=== PATIENT | male | born 1990 | race Caucasian/White ===

== ENCOUNTER 2024-04-16 23:23 | Emergency (ER) | payer OTHER, SELFPAY ==
[2024-04-16 23:29] VITALS: BP 147/96; PULSE 114; RESP 18; TEMP 36.5; O2SAT 97; BMI 28.1
[2024-04-16] MEDS: ONDANSETRON 4 MG/2 ML INJ IV (23:40)
--- NOTE | 2024-04-16 23:54 | ED_ITS ---
HPI - Nausea/Vomiting/Diarrhea General Chief complaint: Nausea/Vomiting/Diarrhea Stated complaint: Vomiting, blood in stool, abd pain Time Seen by Provider: 04/16/24 23:29 Source: patient and family Mode of arrival: Ambulatory History of Present Illness HPI Narrative: Patient is a 34-year-old male who is here for evaluation of several hours of vomiting, diarrhea, abdominal pain. He was visiting the area. No other sick contacts. No recent antibiotics. No fevers. Describes generalized abdominal pain that started around the time of the diarrhea and the vomiting. There was also some concern about dark-colored stools and even dark-colored vomit. He was not on anticoagulation. Related Data Allergies Allergy/AdvReac Type Severity Reaction Status Date / Time No Known Drug Allergies Allergy Verified 04/16/24 23:38 Review of Systems Review of Systems ROS Unobtainable: All systems reviewed & are unremarkable except as noted in HPI and below Patient History Social History Smoking Status: Never smoker Smoking Status: Never smoker Exam Initial Vital Signs Initial Vital Signs: Vital Signs Temperature 97.7 F 04/16/24 23:29 Pulse Rate 114 H 04/16/24 23:29 Respiratory Rate 18 04/16/24 23:29 Blood Pressure 147/96 H 04/16/24 23:29 Pulse Oximetry 97 04/16/24 23:29 Oxygen Delivery Method Room Air 04/16/24 23:29 Const General: cooperative HENMT Head: normal to inspection Resp Effort & Inspection: normal respiratory effort Auscultation: clear to auscultation bilaterally Cardio Rate: tachycardic Rhythm: regular rhythm GI Inspection: non-distended Palpation: soft, No firm, No guarding and tender Neuro General: patient alert and patient awake Course Orders Ordered: ED Orders 04/16/24 23:45 Complete Blood Count AUTO DIFF Stat Comprehensive Metabolic Panel Stat Lipase Stat 04/16/24 23:55 XR abdomen 1V Stat Discontinued Medications Sodium Chloride (Normal Saline 0.9%) 1,000 mls @ 1,000 mls/hr IV BOLUS ONE Stop: 04/17/24 00:53 Last Infusion: 04/17/24 01:04 Dose: Infused Documented By: Admin: 04/16/24 23:57 Dose: 1,000 mls/hr Documented By: MARCELA Metoclopramide HCl (Metoclopramide 10 Mg/2 Ml Inj) 10 mg IV NOW ONE Stop: 04/16/24 23:55 Last Admin: 04/16/24 23:57 Dose: 10 mg Documented By: MARCELA Ondansetron HCl (Ondansetron 4 Mg/2 Ml Inj) 4 mg IV NOW ONE Stop: 04/16/24 23:30 Last Admin: 04/16/24 23:40 Dose: 4 mg Documented By: MARCELA Ondansetron HCl (Ondansetron 4 Mg Odt Prepack) 1 bottle MISC DIRECTED ONE Stop: 04/17/24 01:25 Vital Signs Vital signs: Vital Signs - 8 hr 04/16/24 23:29 Temperature 97.7 F Pulse Rate 114 H Respiratory Rate 18 Blood Pressure 147/96 H Pulse Oximetry 97 Oxygen Delivery Method Room Air MDM - Nausea/Vomiting/Diarrhea Lab Data Attestation: I reviewed the patient's lab results. 04/16/24 23:45 04/16/24 23:45 Labs: Lab Results 04/16/24 Range/Units 23:45 WBC 17.0 H (4.5-11.0) X10^3/uL RBC 5.53 (4.5-5.9) X10^6/uL Hgb 16.8 (13.5-17.5) g/dL Hct 49.7 (41-53) % MCV 89.8 (80-100) fL MCH 30.3 (26-34) PG MCHC 33.7 (30-36) % RDW 13.2 (11.6-14.8) % Plt Count 361 (150-400) X10^3/uL Neut % (Auto) 91.9 H (50-75) % Lymph % (Auto) 4.1 L (25-40) % [place] % (Auto) 3.5 (3-14) % Eos % (Auto) 0.3 L (2-4) % Baso % (Auto) 0.2 (0-2) % Neut # (Auto) 84820 H (4173-1684) /uL Lymph # (Auto) 700 L (9292-3803) /uL [place] # (Auto) 600 (0-900) /uL Eos # (Auto) 100 (0-450) /uL Baso # (Auto) 0 (0-100) /uL Sodium 137 (137-145) mmol/L Potassium 4.3 (3.4-5.1) mmol/L Chloride 101 (98-107) mmol/L Carbon Dioxide 27 (22-32) mmol/L BUN 18 (9-20) mg/dL Creatinine 1.29 H (0.66-1.25) mg/dL Estimated GFR > 60 (>60) mL/min BUN/Creatinine Ratio 14.0 (6-22) Glucose 127 H (70-100) mg/dL Calcium 9.8 (8.4-10.2) mg/dL Total Bilirubin 0.7 (0.2-1.3) mg/dL AST 35 (17-59) IU/L ALT 37 (<50) IU/L Alkaline Phosphatase 85 (38-126) U/L Total Protein 8.7 H (6.3-8.2) g/dL Albumin 5.0 (3.5-5.0) g/dL Globulin 3.7 (1.7-4.1) g/dL Albumin/Globulin Ratio 1.4 (1.0-2.8) Lipase 46 (23-300) U/L Imaging Data Abdominal x-ray: Radiologist's Impression: PROCEDURE: XR ABDOMEN 1V INDICATIONS: Abdominal pain and vomiting TECHNIQUE: One view of the abdomen acquired. COMPARISON: None. FINDINGS: Surgical changes and devices: None. Bowel: Bowel gas pattern is normal. Soft tissues: No suspicious abdominal calcifications. Visualized solid organ contours appear normal in size. Bones: No suspicious bony lesions. IMPRESSION: No acute abnormality. MDM Narrative Medical decision making narrative: Patient does have a diffusely tender abdomen but it is certainly nonsurgical. Received Zofran which only had minimal improvement of his vomiting. Reglan seemed to be the most effective. Has a leukocytosis but I suspect that this is stress given the vomiting that he was having. No recent antibiotics. After Reglan patient reports a vast improvement of his symptoms. He was able to tolerate oral intake. His abdominal exam improve. I do feel we can hold on further radiologic studies. Will send home with nausea medication. We discussed the importance of a bland diet and advancing it as tolerated. He was given return precautions. He expressed understanding and agreement. Discharge Plan Departure Patient Disposition: Home Clinical Impression: Vomiting Instructions: DI for Vomiting -- Adult Activity Restrictions/Additional Instructions: I do recommend a bland diet for the next couple days. Increase your fluid intake. You may have some persistent diarrhea over the next day or so as well. Contact your primary doctor for follow-up. Return to the emergency department for new symptoms. Stand Alone Forms: Patient Portal/API/Survey
[2024-04-16 23:55] LABS: Add Manual Diff / Slide Review NO; Basophils Absolute Auto 0 /uL (0-100); Basophils Percent Auto 0.2 % (0-2); Eosinophils Absolute Auto 100 /uL (0-450); Eosinophils Percent Auto 0.3 % (2-4); Hematocrit 49.7 % (41-53); Hemoglobin 16.8 g/dL (13.5-17.5); Lymphocytes Absolute Auto 700 /uL (1100-4500); Lymphocytes Percent Auto 4.1 % (25-40); Mean Corpuscular HGB Conc 33.7 % (30-36); Mean Corpuscular Hemoglobin 30.3 PG (26-34); Mean Corpuscular Volume 89.8 fL (80-100); Monocytes Absolute Auto 600 /uL (0-900); Monocytes Percent Auto 3.5 % (3-14); Neutrophils Absolute Auto 15600 /uL (1500-7000); Neutrophils Percent Auto 91.9 % (50-75); Platelet Count 361 X10^3/uL (150-400); Red Blood Cell Count 5.53 X10^6/uL (4.5-5.9); Red Cell Distribution Width 13.2 % (11.6-14.8)
--- NOTE | 2024-04-16 23:55 | DI.RAD.S_ITS ---
PROCEDURE: XR ABDOMEN 1V INDICATIONS: Abdominal pain and vomiting TECHNIQUE: One view of the abdomen acquired. COMPARISON: None. FINDINGS: Surgical changes and devices: None. Bowel: Bowel gas pattern is normal. Soft tissues: No suspicious abdominal calcifications. Visualized solid organ contours appear normal in size. Bones: No suspicious bony lesions. IMPRESSION: No acute abnormality. Dictated by: Shelby Owen M.D. on 04/17/2024 at 0:16 Approved by: Shelby Owen M.D. on 04/17/2024 at 0:16
[2024-04-16] MEDS: SODIUM CHLORIDE 0.9% 1,000 ML 1000 ML IV (23:57)
[2024-04-16] MEDS: METOCLOPRAMIDE 10 MG/2 ML INJ IV (23:57)
[2024-04-17 00:03] LABS: Alanine Aminotransferase 37 IU/L (<50); Albumin Globulin Ratio 1.4 (1.0-2.8); Alkaline Phosphatase 85 U/L (38-126); Aspartate Aminotransferase 35 IU/L (17-59); Bilirubin Total 0.7 mg/dL (0.2-1.3); Blood Urea Nitrogen 18 mg/dL (9-20); Calcium 9.8 mg/dL (8.4-10.2); Carbon Dioxide 27 mmol/L (22-32); Chloride 101 mmol/L (98-107); Estimated Glomerular Filt Rate > 60 mL/min (>60); Globulin 3.7 g/dL (1.7-4.1); Glucose 127 mg/dL (70-100); Lipase 46 U/L (23-300); Sodium 137 mmol/L (137-145); Total Protein 8.7 g/dL (6.3-8.2)
[2024-04-17 00:05] LABS: HEMOLYSIS 59 (0-50); Potassium 4.3 mmol/L (3.4-5.1)
[2024-04-17] MEDS: ONDANSETRON 4 MG ODT PREPACK 1 BOTTLE MISC (01:31)
[2024-04-17 01:44] VITALS: BP 130/87; PULSE 120; RESP 16; TEMP 36.2; O2SAT 97
== END 2024-04-17 01:40 | disposition home or self-care (01) ==
PROVIDERS: Emergency Provider Emergency Medicine
DX: R11.10 Vomiting, unspecified (principal); R19.7 Diarrhea, unspecified; R10.9 Unspecified abdominal pain
CPT/HCPCS: 36415; 74018; 80053; 83690; 85025; 96361; 96374; 96375; 99284; J2405; J2765